=== PATIENT | male | born 1990 | race Caucasian/White ===

== ENCOUNTER 2023-01-01 18:16 | Emergency (ER) | payer BC, SELFPAY ==
[2023-01-01 18:30] VITALS: BP 127/82; PULSE 67; RESP 18; TEMP 36.8; O2SAT 99; BMI 29.9
[2023-01-01 18:54] VITALS: BP 127/82; PULSE 67; RESP 18; TEMP 36.8; O2SAT 99
--- NOTE | 2023-01-01 18:56 | EXP.UTC ---
Discharge Plan Disposition Patient Disposition: Home, Self-Care Condition: Good Prescriptions Prescriptions: New azithromycin [Zithromax Z-Nathaniel] 250 mg tablet See Rx Instructions .ROUTE .COMPLEX 5 Days Qty: 6 0RF Rx Instructions: For 250 mg dose pack: take 500 mg today (day 1), then 250 mg for 4 days (days 2-5) methylprednisolone [Medrol (Nathaniel)] 4 mg tablets,dose pack See Rx Instructions .Route .COMPLEX 6 Days Qty: 21 0RF Rx Instructions: taper pack; meclizine 25 mg tablet 25 mg PO TID PRN (Reason: dizziness) Qty: 30 0RF Referrals Follow up/Referrals: Porter Duran [Primary Care Provider] - See instructions Activity Restrictions/Add. Instructions Additional Instructions/Restrictions: No driving until dizziness/vertigo under control Follow up with your Family Doctor if symptoms persist or immediately if they worsen Straight to ER if any worsening of symptoms or any life threatening symptoms passing out etc Take medication as prescribed Clinical Impressions Clinical Impression: Vertigo, Anomaly of inner ear Stand Alone Forms Stand Alone Forms: Work/School Release Instructions Patient Instructions: Vertigo, Meclizine, Methylprednisolone Discharge ED Provider: Shana Arguelles [facility] General Stated complaint: dizzy Mode of Arrival: Ambulatory Source of Information: Patient Limitations: No Limitations Time Seen by Provider: 01/01/23 18:56 Description of Symptoms (Recalled from Triage Doc. by RN): PATIENT C/O DIZZINESS FOR THE PAST 3 DAYS BUT HAS GOTTEN WORSE TODAY. HE STATES HE HAS FELT LIKE HE WAS GOING TO PASS OUT AND WAS SO BAD HE COULDN'T DRIVE. DENIES HEADACHE OR ANY OTHER SYMPTOMS HEENT Symptoms (Recalled from RN notes): Yes Resp Symptoms (Recalled from RN notes): No Skin Symptoms (Recalled from RN notes): No MS Symptoms (Recalled from RN notes): No Functional Status (Recalled from RN notes): WNL History of Present Illness Provider Complaint: Patient state that he started about 3 days ago with dizziness on and off that was worse with certain movements State that it felt like the room was spinning around him but would come and go State that earlier today he was moving around and it started again and hasnt got any better States that feels like everything is spinning around him and making him feel off balance like he may fall States that he got better then was driving home and got out of the truck and walked into the gas station and got back in his truck and turned his head and it started again and he was afraid to drive home so came and got him and brought him in to get him checked Denies headache denies any other complaints State that his did recently deep clean his ears but she has been doing that for years Related Data Previous Rx's Medication Instructions Recorded azithromycin 250 mg tablet See Rx Instructions PO .COMPLEX 5 01/01/23 (Zithromax Z-Nathaniel) days #6 tabs meclizine 25 mg tablet 25 mg PO TID PRN dizziness #30 tabs 01/01/23 methylprednisolone 4 mg tablets in See Rx Instructions .Route 01/01/23 a dose pack (Medrol (Nathaniel)) .COMPLEX 6 days #21 tabs Allergies Allergy/AdvReac Type Severity Reaction Status Date / Time amoxicillin Allergy Verified 01/01/23 18:43 Penicillins Allergy Verified 01/01/23 18:43 Worker's Comp Is this a Worker's Comp case?: No [facility] Disclaimer: The information contained in this section may have been updated after the patient was seen, as this information can be updated by other users. Social History Smoking Status: Unknown if ever smoked alcohol intake: never current occupational status: employed Travel in the last 8 weeks: None ROS Obtained: Yes All systems reviewed & no additional complaints except as documented and Yes Systems reviewed as appropriate & no additional complaints except as documented Constitutional Constitutional: Reports system reviewed and no additional complaints, except as documented, Rep
== END 2023-01-01 19:40 | disposition home or self-care (01) ==
PROVIDERS: Emergency Provider Nurse Practitioner; PCP Family Medicine
DX: R42 Dizziness and giddiness (principal)
CPT/HCPCS: 99204; 99212; G0463

== ENCOUNTER 2023-07-18 08:17 | Emergency (ER) | payer BC, SELFPAY ==
[2023-07-18 09:05] VITALS: BP 122/72; PULSE 70; RESP 18; TEMP 37.1; O2SAT 98; BMI 30.1
[2023-07-18 09:36] LABS: UTC Strep Screen (Rapid) Negative (Negative)
--- NOTE | 2023-07-18 09:52 | EXP.UTC ---
Discharge Plan Disposition Patient Disposition: Home, Self-Care Condition: Good Prescriptions Prescriptions: New azithromycin 250 mg tablet 250 mg PO DIRECTED Qty: 6 0RF Rx Instructions: Take two (2) tablets on day #1, then one (1) tablet day #2 thru #5 No Action esomeprazole magnesium 40 mg Capsule,Delayed Release(Dr/Ec) 40 mg PO DAILY Referrals Follow up/Referrals: Porter Duran [Primary Care Provider] - See instructions Activity Restrictions/Add. Instructions Additional Instructions/Restrictions: Start antibiotics today be sure to take it as ordered with the full length of time although you should start feeling better in 24-48 hours. Change toothbrush and toothpaste 24-48 hours after starting antibiotics Tylenol or Motrin as needed for fever or pain Encourage fluids, water, Gatorade, Powerade, try cold fluids, popsicles, ice cream will make it feel better You are contagious for 24 hours. Avoid kissing anyone, no eating or drinking after anyone. You are contagious. Follow-up the ER for new or worsening symptoms or no noticeable improvement over the next 24-48 hours. Follow-up with PCP this week. Clinical Impressions Clinical Impression: Strep sore throat Instructions Patient Instructions: DI for Strep Throat Discharge ED Provider: Sue ([facility])Millie [facility] [place] General Stated complaint: st cough Mode of Arrival: Ambulatory Source of Information: Patient Limitations: No Limitations Time Seen by Provider: 07/18/23 09:53 Description of Symptoms (Recalled from Triage Doc. by RN): Pt's symptoms are sore throat, and cough. Pt's has strep. HEENT Symptoms (Recalled from RN notes): Yes Resp Symptoms (Recalled from RN notes): No Skin Symptoms (Recalled from RN notes): No MS Symptoms (Recalled from RN notes): No Functional Status (Recalled from RN notes): n/a History of Present Illness Provider Complaint: 33 yr old male presents for c/o sore throat, and cough. Pt's has strep. Related Data Home Medications Medication Instructions Recorded Confirmed esomeprazole magnesium 40 mg 40 mg PO DAILY 07/18/23 07/18/23 capsule,delayed release Previous Rx's Medication Instructions Recorded azithromycin 250 mg tablet 250 mg PO DIRECTED #6 tabs 07/18/23 Allergies Allergy/AdvReac Type Severity Reaction Status Date / Time amoxicillin Allergy Verified 07/18/23 09:42 Penicillins Allergy Verified 07/18/23 09:42 Worker's Comp Is this a Worker's Comp case?: No [facility] Disclaimer: The information contained in this section may have been updated after the patient was seen, as this information can be updated by other users. Social History , [employer]) Smoking Status: Unknown if ever smoked alcohol intake: never current occupational status: employed Travel in the last 8 weeks: None ROS Obtained: Yes All systems reviewed & no additional complaints except as documented Constitutional Constitutional: Reports system reviewed and no additional complaints, except as documented and Reports as per HPI Eyes Eyes: Reports system reviewed and no additional complaints, except as documented ENT Ears, Nose, Mouth, and Throat: Reports system reviewed and no additional complaints, except as documented, Reports as per HPI and Reports sore throat Cardiovascular Cardiovascular: Reports system reviewed and no additional complaints, except as documented Respiratory Respiratory: Reports system reviewed and no additional complaints, except as documented Musculoskeletal Musculoskeletal: Reports system reviewed and no additional complaints, except as documented Integumentary/Breasts Skin/Breast: Reports system reviewed and no additional complaints, except as documented Neurologic Neurologic: Reports system reviewed and no additional complaints, except as documented Endocrine Endocrine: Reports system reviewed and no additional complaints, except as documented Hematologic/Lymphatic Henatologic/Lymphatic: Reports system reviewed and no additional complaints, except as documented Allergic/Immunologic Allergic/Immunologic: Reports system reviewed and no additional complaints, except as documented Physical Exam General General appearance: alert and in no apparent distress Head Head exam: atraumatic Eye Eye exam: Present normal appearance and PERRL ENT ENT exam: Present normal exam, mucous membranes moist and TM's normal bilaterally Expanded ENT Exam Throat exam: Present tonsillar erythema, tonsillomegaly and tonsillar exudate Respiratory Respiratory exam: Present normal lung sounds bilaterally Cardiovascular Cardiovascular exam: Present regular rate and normal rhythm Neurological Exam Neurological exam: Present alert and oriented X3 Skin Skin exam: Present warm and intact Medical Decision Making Medical Records Medical records reviewed: Yes I reviewed the patient's medical records. Hung Inquiry Pt receiving controlled substance: No Hung was queried for this patient: No Vital Signs: 07/18/23 09:05 Temperature 98.8 F Temperature Source Oral Pulse Rate [Right Radial] 70 Respiratory Rate 18 Blood Pressure [Right Arm] 122/72 Blood Pressure Mean [Right Arm] 88 Blood Pressure Source [Right Arm] Automatic Cuff Blood Pressure Position [Right Arm] Sitting 02 Sat by Pulse Oximetry 98 Oxygen Delivery Method Room Air Lab Data Lab results reviewed: Yes I reviewed the patient's lab results. Lab Results 07/18/23 09:17: Strep Scn Rapid Clinic Negative Orders (Tests/Meds): ORDERS Category Date Time Status Strep Screen Confirmation Stat Micro 07/18/23 09:17 Received
[2023-07-18 10:05] VITALS: BP 122/72; PULSE 68; RESP 18; TEMP 37.1; O2SAT 98
== END 2023-07-18 10:05 | disposition home or self-care (01) ==
PROVIDERS: Emergency Provider Nurse Practitioner Family; PCP Family Medicine
DX: J02.0 Streptococcal pharyngitis (principal); R07.0 Pain in throat; R05.9 Cough, unspecified
CPT/HCPCS: 87880; 99212; 99214; G0463